=== PATIENT | female | born 1970 | race Hispanic/Latino ===

== ENCOUNTER → 2024-06-14 | Day surgery (SDC) | payer OTHER ==
[~2024-06-14] MED LIST: GLIMEPIRIDE2 MG PO; JANUVIA100 MG PO; LEVOTHYROXINE50 MCG PO; LIDOCAINE HCL 2% LOCAL INJ 5 ML SDV VIAL INJ ONE; METFORMIN HCL500 M2 PO; MULTI-VITAMIN1 EACH PO; NEURONTIN300 MG PO; NIFEDIPINE ER30 M1 PO; PRAVASTATIN SOD20 MG PO; PROPOFOL IV EMULSION 10 MG/ML 20 ML VIAL ONE; ZESTRIL10 MG PO; ZINC CHELATED50 M2 PO
[2024-06-14] MEDS: LACTATED RINGER'S 1,000 ML ONE (08:12)
[2024-06-14 10:05] VITALS: BP 118/94; PULSE 88; RESP 17; TEMP 97.7; O2SAT 100
== END | disposition home or self-care (01) ==
LOC: OR 06:40
PROVIDERS: ATTEND Internal Medicine Gastroenterology
DX: K59.00 Constipation, unspecified (principal); D12.3 Benign neoplasm of transverse colon; K62.89 Other specified diseases of anus and rectum; K64.8 Other hemorrhoids; I10 Essential (primary) hypertension; E11.9 Type 2 diabetes mellitus without complications; E78.5 Hyperlipidemia, unspecified; K86.89 Other specified diseases of pancreas; E03.9 Hypothyroidism, unspecified; E66.01 Morbid (severe) obesity due to excess calories; Z01.810 Encounter for preprocedural cardiovascular examination; Z79.84 Long term (current) use of oral hypoglycemic drugs; Z79.899 Other long term (current) drug therapy
CPT/HCPCS: 45385; 93005; J2003; J2704; J7121; 45378